=== PATIENT | female | born 1985 | race Caucasian/White ===

== ENCOUNTER 2018-08-07 06:18 | Day surgery (SDC) | payer BC ==
[~2018-08-07 06:18] MED LIST: Lactated Ringers 1,000 ML IV SCH; Lidocaine 1%/Sod Bicarbonate in NS 8.4% 1 ML Syringe IDERM PRN; Sodium Chloride 0.9% 10 ML Syringe FLUSH PRN
[2018-08-07] MEDS ORDERED: Lidocaine 1% 50 ML MDV ONE (07:21)
[2018-08-07] MEDS ORDERED: Lidocaine 1% with EPINEPHrine 1:100,000 20 ML MDV ONE (07:22)
--- NOTE | 2018-08-07 07:31 | PCM.PREANE ---
Preanesthetic Assessment - Procedure Proposed Procedure: TVH - Anesthesia/Transfusion/Family Hx Anesthesia History: Prior Anesthesia Without Reaction Family History of Anesthesia Reaction: No Transfusion History: Prior Transfusion Without Reaction - Review of Systems General: No Symptoms Pulmonary: No Symptoms Cardiovascular: No Symptoms Gastrointestinal: No Symptoms Neurological: No Symptoms Other: Reports: None - Physical Assessment NPO Status Date: 08/06/18 NPO Status Time: 23:45 Pulse: 79 O2 Sat by Pulse Oximetry: 100 Respiratory Rate: 16 Blood Pressure: 107/66 Temperature: 36.5 C Vital Signs: Last Vital Signs Temp 36.5 C 08/07/18 06:30 Pulse 79 08/07/18 06:30 Resp 16 08/07/18 06:30 BP 107/66 08/07/18 06:30 Pulse Ox 100 08/07/18 06:30 Height: 1.68 m Weight: 77.564 kg ASA Class: 2 Mental Status: Alert & Oriented x3 Airway Class: Mallampati = 1 Dentition: Reports: Normal Dentition, [place](s) Thyro-Mental Finger Breadths: 3 Mouth Opening Finger Breadths: 3 ROM/Head Extension: Full Lungs: Clear to Auscultation, Normal Respiratory Effort Cardiovascular: Regular Rate, Regular Rhythm - Lab Values: Laboratory Last Values WBC 7.08 K/mm3 (3.98-10.04) 08/07/18 06:57 RBC 4.09 M/mm3 (3.98-5.22) 08/07/18 06:57 Hgb 12.3 gm/L (11.2-15.7) 08/07/18 06:57 Hct 37.6 % (34.1-44.9) 08/07/18 06:57 MCV 91.9 fl (79.4-94.8) 08/07/18 06:57 MCH 30.1 pg (25.6-32.2) 08/07/18 06:57 MCHC 32.7 g/dl (32.2-35.5) 08/07/18 06:57 RDW Std Deviation 41.5 fL (36.4-46.3) 08/07/18 06:57 Plt Count 275 K/mm3 (182-369) 08/07/18 06:57 MPV 8.9 fl (9.4-12.3) L 08/07/18 06:57 Neut % (Auto) 61.1 % (34.0-71.1) 08/07/18 06:57 Lymph % (Auto) 29.0 % (19.3-51.7) 08/07/18 06:57 [place] % (Auto) 7.6 % (4.7-12.5) 08/07/18 06:57 Eos % (Auto) 1.7 (0.7-5.8) 08/07/18 06:57 Baso % (Auto) 0.3 % (0.1-1.2) 08/07/18 06:57 Neut # (Auto) 4.33 K/mm3 (1.56-6.13) 08/07/18 06:57 Lymph # (Auto) 2.05 K/mm3 (1.18-3.74) 08/07/18 06:57 [place] # (Auto) 0.54 K/mm3 (0.24-0.36) H 08/07/18 06:57 Eos # (Auto) 0.12 K/mm3 (0.04-0.36) 08/07/18 06:57 Baso # (Auto) 0.02 K/mm3 (0.01-0.08) 08/07/18 06:57 Urine HCG, Qual Negative (NEGATIVE) 08/07/18 06:37 - Allergies Allergies/Adverse Reactions: Allergies Allergy/AdvReac Type Severity Reaction Status Date / Time No Known Allergies Allergy Verified 08/06/18 16:20 - Anesthesia Plan Pre-Op Medication Ordered: None - Acknowledgements Anesthesia Type Planned: General Anesthesia Pt an Appropriate Candidate for the Planned Anesthesia: Yes Alternatives and Risks of Anesthesia Discussed w Pt/Guardian: Yes Pt/Guardian Understands and Agrees with Anesthesia Plan: Yes PreAnesthesia Questionnaire HEENT History: Reports: Impaired Vision Cardiovascular History: Reports: None Respiratory History: Reports: None Gastrointestinal History: Reports: GERD 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 History: Reports: Musculoskeletal History: Reports: Other (See Below) Other Musculoskeletal History: lumbar disc disease Neurological History: Reports: Migraines Psychiatric History: Reports: None Endocrine/Metabolic History: Reports: None Hematologic History: Reports: None Immunologic History: Reports: None Oncologic (Cancer) History: Reports: None Dermatologic History: Reports: None - Past Surgical History Head Surgeries/Procedures: Reports: None HEENT Surgical History: Reports: None Cardiovascular Surgical History: Reports: None Respiratory Surgical History: Reports: None GI Surgical History: Reports: None Female Surgical History: Reports: Tubal Ligation Endocrine Surgical History: Reports: None Neurological Surgical History: Reports: None Musculoskeletal Surgical History: Reports: None Dermatological Surgical History: Reports: None - SUBSTANCE USE Smoking Status *Q: Never Smoker Tobacco Use Within Last Twelve Months: No Second Hand Smoke Exposure: Yes Days Per Week of Alcohol Use: 0 Number of Drinks Per Day: 0 Total Drinks Per Week: 0 Recreational Drug Use History: No - HOME MEDS Home Medications: Home Meds Ascorbic Acid [Vitamin C] 1,000 mg PO DAILY 08/06/18 [History] Cetirizine [ZyrTEC] 10 mg PO DAILY PRN 08/06/18 [History] Cholecalciferol (Vitamin D3) [Vitamin D3] 1,000 unit PO DAILY 08/06/18 [History] Fish Oil/[place]-3 Fatty Acids [Fish Oil 1,000 MG] 1 gm PO DAILY 08/06/18 [History ] Liraglutide [Victoza] 0.6 mg SQ DAILY 08/06/18 [History] Multivitamin [Zoo Chews] 1 tab PO DAILY 08/06/18 [History] Topiramate [Topamax] 50 mg PO BID 08/06/18 [History] Turmeric/Turmeric Root Extract [Turmeric 500 mg Capsule] 1 cap PO DAILY [History] - CURRENT (IN HOUSE) MEDS Current Meds: Current Medications Lactated Ringer's (Ringers, Lactated) 1,000 mls @ 125 mls/hr IV ASDIRECTED LEX Stop: 08/07/18 23:00 Last Admin: 08/07/18 06:57 Dose: 125 mls/hr Lidocaine/Sodium Bicarbonate (Buffered Lidocaine 1% In Ns 8.4%) 0.25 ml IDERM ONETIME PRN PRN Reason: Prior to IV Start Stop: 08/07/18 18:00 Last Admin: 08/07/18 06:57 Dose: 0.25 ml Sodium Chloride (Saline Flush) 10 ml FLUSH ASDIRECTED PRN PRN Reason: Keep Vein Open Stop: 08/07/18 18:00 Discontinued Medications Lidocaine HCl (Xylocaine 1%) Confirm Administered Dose 50 ml .ROUTE .[facility]-MED ONE Stop: 08/07/18 07:22 Lidocaine/Epinephrine (Xylocaine 1% With Epinephrine 1:100,000) Confirm Administered Dose 20 ml .ROUTE .[facility]-MED ONE Stop: 08/07/18 07:23
[2018-08-07] MEDS ORDERED: Propofol 200 MG/20 ML SDV ONE (07:37)
[2018-08-07] MEDS ORDERED: fentaNYL 250 MCG/5 ML SDV ONE ×2 (07:37→08:32)
[2018-08-07] MEDS ORDERED: Rocuronium 50 MG/5 ML Vial ONE (07:37)
[2018-08-07] MEDS ORDERED: Midazolam 1 MG/ML 2 ML SDV ONE (07:37)
[2018-08-07] MEDS ORDERED: Ondansetron 4 MG/2 ML SDV ONE (07:37)
[2018-08-07] MEDS ORDERED: ceFAZolin 1 GM Vial ONE (07:38)
[2018-08-07] MEDS ORDERED: HYDROmorphone 0.5 MG/0.5 ML Syringe ONE ×2 (08:01)
[2018-08-07] MEDS ORDERED: Lactated Ringers 1,000 ML ONE ×2 (08:24→08:58)
[2018-08-07] MEDS ORDERED: Dexamethasone 4 MG/ML 5 ML MDV ONE (08:29)
--- NOTE | 2018-08-07 08:59 | PCM.OPNOTE ---
- General Post-Op/Procedure Note Date of Surgery/Procedure: 08/07/18 Operative Procedure(s): Total vaginal hysterectomy Findings: Grossly normal appearance of the cervix. Uterus normal sized. Fallopian tubes absent from prior salpingectomy. Ovaries not well visualized. Pre Op Diagnosis: Abnormal uterine bleeding - declined medical management Post-Op Diagnosis: Same Anesthesia Technique: General ET Tube Primary Surgeon: Lynette Palumbo Secondary Surgeon: Vero Carmichael Anesthesia Provider: Alexx Comer Reason Catering Associate Was Necessary: Speed, safety of procedure Pathology: Cervix and uterus sent to pathology for further evaluation Fluid Replacement, Intraop: 1,800 Output, Urine Amount: 175 EBL in mLs: 100 Complications: None Condition: Good Free Text/Narrative:: The risks, benefits, indications, potential complications, and alternatives were explained to the patient and informed consent obtained. The patient was taken to the Operating Room where general anesthesia was induced without complication and found to be adequate. The patient was placed in dorsal lithotomy with Venkatesh stirrups and an exam under anesthesia revealed the findings detailed above. The patient was then prepped and draped in the usual sterile fashion. Cuenca catheter was placed into the bladder. A weighted speculum was placed in the vagina, and the cervix was grasped with a double tooth tenaculum. The cervix was injected circumferentially with 20 mL of 1% lidocaine with dilute epinephrine. The cervix was then circumferentially incised with a scalpel. The posterior cul-de-sac was entered sharply without difficulty. An 0-Vicryl pop-off sutures was placed posteriorly to include the posterior vaginal mucosa and the posterior peritoneum. The short weighted speculum was replaced with a long weighted speculum into the peritoneal cavity posteriorly. The bladder was dissected away from the pubovesical cervical fascia anteriorly with a sponge and blunt dissection. The uterosacral ligaments were grasped on either side with the Ligasure, cauterized, and transected. A raytec was used for further blunt dissection of the bladder away from the pubovesical cervical fascia and then the anterior cul de sac was entered sharply with Metzenbaum scissors. The cardinal ligaments were then serially clamped on both sides with the Ligasure, cauterized, and transected. The uterine arteries were then clamped with the Ligasure, cauterized, and transected. Hemostasis was adequate. Both cornua were then clamped, cauterized , and transected. The uterus was then removed. The posterior vaginal cuff was then closed with a running, locked 0 vicryl suture. Two additional 0 vicryl sutures were placed in a figure of eight fashion around areas of slight bleeding at the cuff edge. The vaginal cuff was then closed in a running locked fashion with 0-Vicryl. Hemostasis was noted. All sponge, lap, needle, and instrument counts were correct x 2. The patient tolerated the procedure well and there were no complications. The cuenca catheter was removed at the end of the case.
[2018-08-07] MEDS ORDERED: fentaNYL 100 MCG/2 ML SDV IVPUSH PRN (09:13)
[2018-08-07] MEDS ORDERED: Ketorolac 30 MG/ML SDV IVPUSH PRN (09:13)
--- NOTE | 2018-08-07 09:15 | PCM.POSTAN ---
POST ANESTHESIA ASSESSMENT - MENTAL STATUS Mental Status: Alert, Oriented - VITAL SIGNS Pulse Rate: 103 SaO2: 97 Resp Rate: 10 Blood Pressure: 116/48 Temperature: 36.6 C - RESPIRATORY Respiratory Status: Respiratory Rate WNL, Airway Patent, O2 Saturation Stable, Supplemental Oxygen - CARDIOVASCULAR CV Status: Pulse Rate WNL, Blood Pressure Stable - GASTROINTESTINAL GI Status: No Symptoms - PAIN Pain Score: 0 - POST OP HYDRATION Hydration Status: Adequate & Stable - OBSERVATIONS Free Text/Narrative:: no anesthesia complications noted
[2018-08-07] MEDS ORDERED: Acetaminophen/oxyCODONE 325-5 MG Tab PO PRN (10:09)
== END 2018-08-07 13:50 | disposition home or self-care (01) ==
LOC: JD.SDS 06:18
PROVIDERS: ATTEND Obstetrics & Gynecology
DX: N72 Inflammatory disease of cervix uteri (principal); N87.9 Dysplasia of cervix uteri, unspecified; N92.0 Excessive and frequent menstruation with regular cycle; Z90.79 Acquired absence of other genital organ(s); Z87.891 Personal history of nicotine dependence; Z98.51 Tubal ligation status; Z80.49 Family history of malignant neoplasm of other genital organs; Z79.899 Other long term (current) drug therapy
CPT/HCPCS: 36415; 58260; 80048; 81025; 85025; 86850; 86900; 86901; A9270; J0690; J1100; J1170; J1885; J2250; J2405; J2704; J3010; J7120; 00944

== ENCOUNTER 2019-05-26 12:05 | Emergency (ER) | payer BC ==
[2019-05-26] MEDS ORDERED: HYDROmorphone 0.5 MG/0.5 ML Syringe IM ONE (12:27)
--- NOTE | 2019-05-26 12:28 | EDM.PDOC ---
ED HPI GENERAL MEDICAL PROBLEM - General Chief Complaint: Upper Extremity Injury/Pain Stated Complaint: LT WRIST INJURY Time Seen by Provider: 05/26/19 12:13 Source of Information: Reports: Patient, RN Notes Reviewed History Limitations: Reports: No Limitations - History of Present Illness INITIAL COMMENTS - FREE TEXT/NARRATIVE: Patient is a 33-year-old female who presents to the ED for the evaluation of a left wrist injury. Patient notes around 2 hours ago she was walking outside, ended up slipping on the ice and catching herself with her left hand/wrist. She noted pain into the wrist shortly after the slip, and has appreciated some swelling and bruising over her wrist after this as well. Patient denies any pain into her hand, or into her elbow she further denies any numbness or tingling into her fingers. Patient would rate her pain at a 7 out of 10. She states that she has had a hysterectomy, there is no chance that she could be . Patient did use ice to the area prior to arrival to the ER. Patient notes she is left hand dominant. Left Wrist Pain Score (Numeric/FACES): 7 - Related Data Allergies Allergy/AdvReac Type Severity Reaction Status Date / Time No Known Allergies Allergy Verified 08/06/18 16:20 Home Meds: Home Meds Cetirizine [ZyrTEC] 10 mg PO DAILY PRN 08/06/18 [History] Cholecalciferol (Vitamin D3) [Vitamin D3] 1,000 unit PO DAILY 08/06/18 [History] Fish Oil/[place]-3 Fatty Acids [Fish Oil 1,000 MG] 1 gm PO DAILY 08/06/18 [History ] Liraglutide [Victoza] 0.6 mg SQ DAILY 08/06/18 [History] Multivitamin [Zoo Chews] 1 tab PO DAILY 08/06/18 [History] Turmeric/Turmeric Root Extract [Turmeric 500 mg Capsule] 1 cap PO DAILY [History] Acetaminophen [Acetaminophen Extra Strength] 1,000 mg PO ONCALL PRN 05/26/19 [ History] Acetaminophen/HYDROcodone [Otto 325-5 MG] 1 tab PO Q6H PRN #28 tablet 05/26/19 [Rx] Magnesium Oxide [Magnesium] 1,000 mg PO BEDTIME 05/26/19 [History] Phentermine HCl 37.5 mg PO DAILY 05/26/19 [History] Past Medical History HEENT History: Reports: Impaired Vision Cardiovascular History: Reports: None Respiratory History: Reports: None Gastrointestinal History: Reports: GERD RN HEART History: Reports: Musculoskeletal History: Reports: Fracture, Other (See Below) Other Musculoskeletal History: lumbar disc disease Neurological History: Reports: Migraines Psychiatric History: Reports: None Endocrine/Metabolic History: Reports: None Hematologic History: Reports: None Immunologic History: Reports: None Oncologic (Cancer) History: Reports: None Dermatologic History: Reports: None - Past Surgical History Head Surgeries/Procedures: Reports: None HEENT Surgical History: Reports: None Cardiovascular Surgical History: Reports: None Respiratory Surgical History: Reports: None GI Surgical History: Reports: None Female Surgical History: Reports: Hysterectomy, Tubal Ligation Endocrine Surgical History: Reports: None Neurological Surgical History: Reports: None Musculoskeletal Surgical History: Reports: None Dermatological Surgical History: Reports: None Social & Family History - Tobacco Use Smoking Status *Q: Former Smoker Used Tobacco, but Quit: Yes Month/Year Tobacco Last Used: 2010 - Caffeine Use Caffeine Use: Reports: Coffee - Recreational Drug Use Recreational Drug Use: No Review of Systems - Review of Systems Review Of Systems: Comprehensive ROS is negative, except as noted in HPI. Musculoskeletal: Reports: Joint Pain (Left wrist), Joint Swelling (Left wrist) Skin: Reports: Bruising (Left wrist) Neurological: Denies: Numbness, Tingling ED EXAM, GENERAL - Physical Exam Exam: See Below Exam Limited By: No Limitations General Appearance: Alert, WD/WN, No Apparent Distress Respiratory/Chest: No Respiratory Distress, Lungs Clear, Normal Breath Sounds, No Accessory Muscle Use, Chest Non-Tender Cardiovascular: Normal Peripheral Pulses, Regular Rate, Rhythm, No Murmur Peripheral Pulses: 3+: Radial (L), Radial (R) Extremities: Normal Capillary Refill, Limited Range of Motion (of left wrist d/ t pain) Neurological: Alert, Oriented, Normal Cognition, No Motor/Sensory Deficits Psychiatric: Normal Affect, Normal Mood Skin Exam: Warm, Dry, Normal Color, No Rash, Ecchymosis (To dorsum of Left wrist , mild swelling appreciated) Course - Vital Signs Last Recorded V/S: Last Vital Signs Temp 99.0 F 05/26/19 12:16 Pulse 90 05/26/19 12:16 Resp 16 05/26/19 12:16 BP 102/68 05/26/19 12:16 Pulse Ox 100 05/26/19 12:16 - Orders/Labs/Meds Orders: Active Orders 24 hr Category Date Time Status Wrist Comp Min 3V Lt [CR] Stat Exams 05/26/19 12:26 Taken DME for Discharge [COMM] Routine Oth 05/26/19 12:56 Ordered Meds: Medications Discontinued Medications Generic Name Dose Route Start Last Admin Trade Name Radha PRN Reason Stop Dose Admin Hydromorphone HCl 0.5 mg 05/26/19 12:27 05/26/19 12:38 Dilaudid IM 05/26/19 12:28 0.5 mg ONETIME ONE Administration - Re-Assessments/Exams Free Text/Narrative Re-Assessment/Exam: 05/26/19 12:48 Patient presents to the ED for evaluation of a left wrist injury. X-rays were obtained, and demonstrate a nondisplaced distal radius fracture, this is very minimal. Dr. Cox did review the films as well, and states that she could likely be sent home in a cock-up splint with no complications. At this time I will send the patient home with this, and have her follow-up with Ortho. Departure - Departure Time of Disposition: 12:49 Disposition: Home, Self-Care 01 Condition: Good Clinical Impression: Radius fracture Qualifiers: Encounter type: initial encounter Radius location: distal Fracture type: closed Fracture morphology: other fracture Laterality: left Qualified Code(s): S52.592A - Other fractures of lower end of left radius, initial encounter for closed fracture - Discharge Information *PRESCRIPTION DRUG MONITORING PROGRAM REVIEWED*: Yes *COPY OF PRESCRIPTION DRUG MONITORING REPORT IN PATIENT MARIA E: No Prescriptions: Acetaminophen/HYDROcodone [Otto 325-5 MG] 1 tab PO Q6H PRN #28 tablet PRN Reason: Pain Instructions: Forearm Fracture, [id number] Referrals: Destiny Mars PA-C [Primary Care Provider] - Forms: ED Department Discharge Additional Instructions: You have been evaluated in the ED for your Left wrist injury. Your x-ray demonstrated a very small, stable distal radius fracture. Please use ice as tolerated to the affected area. You may take Tylenol 500 mg or ibuprofen 600mg q6 hrs for pain relief. Please do so until you have a tolerable level of pain with activity. Do not exceed 4000mg tylenol, Do not exceed 3200mg ibuprofen in a 24 hour time period. You were given a prescription for a stronger pain medication, hydrocodone/ acetaminophen 5/325, please take 1 tab every 6 hours as needed for pain not relieved by Tylenol or ibuprofen alone. Please note this does contain Tylenol in it, so do not take more than 4000 mg in a 24-hour time span. These medications can be addictive, so please take as few as possible to achieve adequate pain control. These meds can also be quite constipating, recommend that you increase your oral fluid intake and take a stool softener like MiraLAX while taking these medications. Your prescription was electronically sent to [facility] pharmacy located near [facility], this pharmacy is only open from 12 to 4 PM today, you will need to go there during this timeframe to obtain this medication and take as prescribed. Please call Ortho for follow-up and further evaluation Dr. Holbrook at [facility] should be able to manage this well for you, [facility] clinic number is . Please call and set up an appointment as soon as possible for further management. Please return to ED if your symptoms should change or worsen. - My Orders Last 24 Hours: My Active Orders 05/26/19 12:26 Wrist Comp Min 3V Lt [CR] Stat 05/26/19 12:56 DME for Discharge [COMM] Routine - Assessment/Plan Last 24 Hours: My Active Orders 05/26/19 12:26 Wrist Comp Min 3V Lt [CR] Stat 05/26/19 12:56 DME for Discharge [COMM] Routine
--- NOTE | 2019-05-27 09:19 | CR ---
Left wrist: Four views of the left wrist were obtained. Comparison: No previous wrist study. Fracture is noted within the distal radius. I believe that there is a transverse fracture line through the metaphysis as well as epiphyseal fracture extension to involve the articular margin. No significant displacement is appreciated. No additional fracture or other bony abnormality is seen. Impression: 1. Nondisplaced distal left radial fracture as described above. Diagnostic code #3 This report was dictated in [place] Standard Time
== END 2019-05-26 13:08 | disposition home or self-care (01) ==
LOC: JD.ED 12:05
DX: S52.592A Other fractures of lower end of left radius, initial encounter for closed fracture (principal); Z87.891 Personal history of nicotine dependence; W00.0XXA Fall on same level due to ice and snow, initial encounter; Y93.01 Activity, walking, marching and hiking; Y92.89 Other specified places as the place of occurrence of the external cause
CPT/HCPCS: 73110; 96372; 99283; J1170